=== PATIENT | female | born 2005 | race African-American/Black ===

== ENCOUNTER 2024-07-11 10:45 | Emergency (ER) | payer OTHER, SELFPAY ==
[2024-07-11 10:55] VITALS: BP 134/81; PULSE 96; RESP 13; TEMP 36.4; O2SAT 100; BMI 18.6
--- NOTE | 2024-07-11 10:57 | EKG_ITS ---
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
--- NOTE | 2024-07-11 10:57 | DI.RAD.S_ITS ---
PROCEDURE: XR CHEST 1V INDICATIONS: chest pain TECHNIQUE: One view of the chest was acquired. COMPARISON: None. FINDINGS: Surgical changes and devices: None. Lungs and pleura: Lungs are clear. No pleural effusions or pneumothorax. Mediastinum: Mediastinal contours appear normal. Heart size is normal. Bones and chest wall: No suspicious bony lesions. Overlying soft tissues appear unremarkable. IMPRESSION: No acute cardiopulmonary abnormality is seen. Dictated by: Luan Oakley M.D. on 07/11/2024 at 11:31 Approved by: Luan Oakley M.D. on 07/11/2024 at 11:32
[2024-07-11 11:38] LABS: INR 1.1 (0.9-1.3); Prothrombin Time 12.2 SECONDS (9.4-12.5)
[2024-07-11 11:41] LABS: PTT Partial Thromboplastin Tim 35 SECONDS (25.1-36.5)
[2024-07-11 11:46] LABS: Add Manual Diff / Slide Review NO; Basophils Absolute Auto 0 /uL (0-100); Basophils Percent Auto 0.6 % (0-2); Eosinophils Absolute Auto 0 /uL (0-450); Eosinophils Percent Auto 0.2 % (2-4); Hematocrit 37.2 % (36-46); Hemoglobin 12.2 g/dL (12.0-16.0); Lymphocytes Absolute Auto 1300 /uL (1100-4500); Lymphocytes Percent Auto 30.6 % (25-40); Mean Corpuscular HGB Conc 32.7 % (30-36); Mean Corpuscular Hemoglobin 26.7 PG (26-34); Mean Corpuscular Volume 81.7 fL (80-100); Monocytes Absolute Auto 300 /uL (0-900); Monocytes Percent Auto 7.2 % (3-14); Neutrophils Absolute Auto 2500 /uL (1500-7000); Neutrophils Percent Auto 61.4 % (50-75); Platelet Count 315 X10^3/uL (150-400); Red Blood Cell Count 4.56 X10^6/uL (4.0-5.2); Red Cell Distribution Width 18.2 % (11.6-14.8); White Blood Cell Count 4.1 X10^3/uL (4.5-11.0)
[2024-07-11 11:48] LABS: Alanine Aminotransferase 19 IU/L (<35); Albumin 5.1 g/dL (3.5-5.0); Albumin Globulin Ratio 1.4 (1.0-2.8); Alkaline Phosphatase 79 U/L (38-126); Aspartate Aminotransferase 32 IU/L (14-36); BUN Creatinine Ratio 13.3 (6-22); Bilirubin Total 0.5 mg/dL (0.2-1.3); Blood Urea Nitrogen 10 mg/dL (7-17); Calcium 9.7 mg/dL (8.4-10.2); Carbon Dioxide 22 mmol/L (22-32); Chloride 104 mmol/L (98-107); Creatine Kinase 63 U/L (30-135); Estimated Glomerular Filt Rate > 60 mL/min (>60); Globulin 3.7 g/dL (1.7-4.1); Glucose 83 mg/dL (70-99); HEMOLYSIS < 15 (0-50); Lipase 38 U/L (23-300); Magnesium 1.8 mg/dL (1.6-2.3); Potassium 3.9 mmol/L (3.4-5.1); Sodium 137 mmol/L (137-145); Total Protein 8.8 g/dL (6.3-8.2)
[2024-07-11 11:59] LABS: NT-proBNP (BNP-Adult 18+) < 20 pg/mL (<125); Troponin I < 0.012 ng/mL (0.01-0.034)
--- NOTE | 2024-07-11 12:23 | ED_ITS ---
<Statement entered by Nicolás Mcgregor, - 07/11/24 18:44> Dr. Mcgregor co Signs statement I was available for consultation during this patient's emergency department visit. This chart is signed by myself for administrative purposes only. I did not have direct contact with this patient during this visit. They were seen independently by the APC HPI - Chest Pain General Chief Complaint: Chest Pain Stated Complaint: chest pain 3 days Time Seen by Provider: 07/11/24 12:02 Source: patient Mode of arrival: Ambulatory History of Present Illness HPI narrative: 19-year-old female presents to the ED with 3-4 days of substernal chest pain. No fever, chills, nausea, vomiting, abdominal pain, dysuria, lightheadedness, dizziness, syncope. Patient denies any cardiac history or history of GERD. Patient states that her pain seems to mostly come on when she is lying down at night. Further elicitation from patient confirms that the pain is more in the epigastric region than in the chest. Related Data Allergies Allergy/AdvReac Type Severity Reaction Status Date / Time No Known Drug Allergies Allergy Verified 07/11/24 10:55 Review of Systems Constitutional Constitutional: Denies chills, Denies fatigue, Denies fever(s), Denies frequent falls, Denies lethargy and Denies weakness Eyes Eyes: Denies change in vision, Denies eye discharge, Denies irritation and Denies loss of vision ENT Ears, Nose, Mouth, and Throat: Denies change in voice, Denies dizziness, Denies neck pain, Denies sore throat and Denies throat swelling Cardiovascular Cardiovascular: Reports chest pain, Denies irregular heart rhythm, Denies lightheadedness, Denies palpitations, Denies dyspnea, Denies dyspnea on exertion and Denies orthopnea Respiratory Respiratory: Denies cough, Denies dyspnea, Denies dyspnea on exertion and Denies wheezing Gastrointestinal Gastrointestinal: Denies abdominal pain, Denies change in bowel habits, Denies diarrhea, Denies nausea and Denies vomiting Musculoskeletal Musculoskeletal: Denies neck pain and Denies numbness Integumentary/Breasts Skin/Breast: Denies pruritus, Denies erythema, Denies rash and Denies wounds Neurologic Neurologic: Denies behavioral changes, Denies confusion, Denies dizziness, Denies frequent falls, Denies loss of vision, Denies numbness and Denies weakness Psychiatric Psychiatric: Denies anxiety, Denies behavioral changes, Denies confusion, Denies depression, Denies homicidal ideation and Denies suicidal ideation Endocrine Endocrine: Denies fatigue, Denies flushing and Denies palpitations Hematologic/Lymphatic Hematologic/Lymphatic: Denies easy bruising Allergic/Immunologic Allergic/Immunologic: Denies urticaria, Denies throat swelling and Denies wheezing Patient History Social History Smoking Status: Unknown if ever smoked Smoking Status: Unknown if ever smoked Exam Narrative Exam Narrative: Const General:?cooperative, healthy appearing and comfortable [facility] Head:?normal to inspection Ears:?hearing grossly normal bilaterally Nose:?external nose normal Face and sinus:?normal facial exam and sinuses nontender Mouth:?oral mucosae normal Throat:?posterior oropharynx normal Eyes General:?appearance normal, both eyes and all related structures Neck Neck:?normal visual inspection and no lymphadenopathy noted Resp Effort & Inspection:?normal respiratory effort Auscultation:?clear to auscultation bilaterally Cardio Rate:?regular rate Rhythm:?regular rhythm GI Abdomen is soft, nondistended. There is tenderness to palpation in the epigastric region. Neuro General:?patient alert, patient awake and patient oriented x3 Initial Vital Signs Initial Vital Signs: Vital Signs Temperature 97.6 F 07/11/24 10:55 Pulse Rate 96 H 07/11/24 10:55 Respiratory Rate 13 07/11/24 10:55 Blood Pressure 134/81 07/11/24 10:55 Pulse Oximetry 100 07/11/24 10:55 Oxygen Delivery Method Room Air 07/11/24 10:55 Course Orders Ordered: ED Orders 07/11/24 10:57 XR chest 1V Stat EKG-12 Lead Stat 07/11/24 11:15 Complete Blood Count AUTO DIFF Stat Comprehensive Metabolic Panel Stat Lipase Stat Magnesium Stat NT-proBNP (BNP-Adult 18+) Stat PTT Partial Thromboplastin Lance Stat Prothrombin Time INR Stat Troponin & CK Cardiac Panel Stat Vital Signs Vital signs: Vital Signs - 8 hr 07/11/24 10:55 07/11/24 12:36 Temperature 97.6 F Pulse Rate 96 H 82 Respiratory Rate 13 13 Blood Pressure 134/81 100/60 Pulse Oximetry 100 99 Oxygen Delivery Method Room Air Room Air MDM - Chest Pain Lab Data 07/11/24 11:15 07/11/24 11:15 Labs: Lab Results 07/11/24 Range/Units 11:15 WBC 4.1 L (4.5-11.0) X10^3/uL RBC 4.56 (4.0-5.2) X10^6/uL Hgb 12.2 (12.0-16.0) g/dL Hct 37.2 (36-46) % MCV 81.7 (80-100) fL MCH 26.7 (26-34) PG MCHC 32.7 (30-36) % RDW 18.2 H (11.6-14.8) % Plt Count 315 (150-400) X10^3/uL Neut % (Auto) 61.4 (50-75) % Lymph % (Auto) 30.6 (25-40) % Wood % (Auto) 7.2 (3-14) % Eos % (Auto) 0.2 L (2-4) % Baso % (Auto) 0.6 (0-2) % Neut # (Auto) 2500 (6494-3606) /uL Lymph # (Auto) 1300 (5574-0006) /uL Wood # (Auto) 300 (0-900) /uL Eos # (Auto) 0 (0-450) /uL Baso # (Auto) 0 (0-100) /uL PT 12.2 (9.4-12.5) SECONDS INR 1.1 (0.9-1.3) APTT 35 (25.1-36.5) SECONDS Sodium 137 (137-145) mmol/L Potassium 3.9 (3.4-5.1) mmol/L Chloride 104 (98-107) mmol/L Carbon Dioxide 22 (22-32) mmol/L BUN 10 (7-17) mg/dL Creatinine 0.75 (0.52-1.04) mg/dL Estimated GFR > 60 (>60) mL/min BUN/Creatinine Ratio 13.3 (6-22) Glucose 83 (70-99) mg/dL Calcium 9.7 (8.4-10.2) mg/dL Magnesium 1.8 (1.6-2.3) mg/dL Total Bilirubin 0.5 (0.2-1.3) mg/dL AST 32 (14-36) IU/L ALT 19 (<35) IU/L Alkaline Phosphatase 79 (38-126) U/L Total Creatine Kinase 63 (30-135) U/L Troponin I < 0.012 (0.01-0.034) ng/mL NT-Pro-B Natriuret Pep < 20 (<125) pg/mL Total Protein 8.8 H (6.3-8.2) g/dL Albumin 5.1 H (3.5-5.0) g/dL Globulin 3.7 (1.7-4.1) g/dL Albumin/Globulin Ratio 1.4 (1.0-2.8) Lipase 38 (23-300) U/L MDM Narrative Medical decision making narrative: 19-year-old female presents to the ED with 3-4 days of substernal chest pain. Cardiac workup was unremarkable. Labs within normal limits. Troponin and BNP within normal limits. Chest x-ray without acute cardiopulmonary abnormalities. EKG is normal sinus rhythm with right axis deviation. No acute ST-T changes. On physical exam, patient is tender in the epigastric region. Patient's symptoms could likely be related to acid reflux. Counseled patient on lifestyle modifications for GERD. Recommend trialing Pepcid AC. ED return precautions were discussed with patient. Patient verbalized understanding. Medical records reviewed: Yes Discharge Plan Departure Patient Disposition: Home Clinical Impression: Epigastric abdominal pain, Atypical chest pain Instructions: DI for Gastroesophageal Reflux Disease (GERD), DI for Atypical Chest Pain Activity Restrictions/Additional Instructions: You were evaluated in the ED today for chest pain. Your cardiac workup was normal. It appears that you might be experiencing acid reflux or GERD that might be causing your symptoms. You may trial Pepcid AC twice a day for 4 weeks, 30 minutes before breakfast, 30 minutes prior to dinner. Pepcid AC is available [id number]. Some lifestyle modifications that will help with acid reflux are smaller meals, staying upright for 2-3 hours after a meal before lying down, avoiding triggers such as spicy/greasy/acidic foods. Please follow- up with your PCP as soon as possible. Please continue to monitor your symptoms and return to the ED if you have worsening symptoms. Referrals: ProviderSatish [Primary Care Provider] - Stand Alone Forms: Patient Portal/API/Survey
[2024-07-11 12:36] VITALS: BP 100/60; PULSE 82; RESP 13; O2SAT 99
== END 2024-07-11 12:39 | disposition home or self-care (01) ==
PROVIDERS: Family Medicine; Emergency Provider Student in an Organized Health Care Education/Training Program
DX: R10.13 Epigastric pain (principal); R07.89 Other chest pain
CPT/HCPCS: 36415; 71045; 80053; 82550; 83690; 83735; 83880; 84484; 85025; 85610; 85730; 93005; 99281; 99284